=== PATIENT | female | born 1980 | race African-American/Black ===

== ENCOUNTER 2016-10-16 23:14 | Emergency (ER) | payer BC ==
[~2016-10-16] VITALS: Ht 152.4 cm; Wt 57.5 kg
[2016-10-16 23:47] VITALS: Ht 152.4 cm; Wt 57.5 kg
[2016-10-17 01:34] VITALS: BP 125/87; PULSE 70; RESP 17
[2016-10-17 02:29] LABS: ADD SCAN DIFF NO
[2016-10-17 02:31] LABS: BASOPHILS % 0.3 % (0.0-2.0); EOSINOPHILS # 0.2 10^3/ul (0.0-0.5); EOSINOPHILS % 2.8 % (0.0-7.0); HEMATOCRIT 40.1 % (37.0-47.0); HEMOGLOBIN 13.4 g/dl (12.0-16.0); LYMPHOCYTES # 2.5 10^3/ul (0.8-2.9); LYMPHOCYTES % 33.3 % (15.0-51.0); MEAN CORPUSCULAR HGB CONC 33.4 g/dl (32.0-37.0); MEAN CORPUSCULAR VOLUME 89.7 fl (82.0-101.0); MEAN PLATELET VOLUME 9.9 fl (7.4-10.4); MONOCYTE # 0.7 10^3/ul (0.3-0.9); MONOCYTES % 8.9 % (0.0-11.0); NEUTROPHIL # 4.1 10^3/ul (1.6-7.5); NEUTROPHILS % 54.4 % (39.0-77.0); PLATELET COUNT 301 10^3/UL (140-415); RED BLOOD COUNT 4.47 10^6/ul (4.20-5.40); RED CELL DISTRIBUTION WIDTH 11.9 % (11.5-14.5); WHITE BLOOD COUNT 7.5 10^3/ul (4.8-10.8)
[2016-10-17 02:46] LABS: INR 0.93; PROTIME 12.5 Sec (12.2-14.2)
[2016-10-17 02:47] LABS: PARTIAL THROMBOPLASTIN TIME 29.2 Sec (25.0-35.0)
[2016-10-17 02:48] LABS: ANION GAP 12 (8-16); BLOOD UREA NITROGEN 15 mg/dl (7-20); CALCIUM 8.7 mg/dl (8.4-10.2); CARBON DIOXIDE 26 mmol/L (21-31); CHLORIDE 108 mmol/L (97-110); CREATININE 0.79 mg/dl (0.44-1.00); GLUCOSE 94 mg/dl (70-220); POTASSIUM 3.8 mmol/L (3.5-5.1); SODIUM 142 mmol/L (135-144)
[2016-10-17 02:49] LABS: D-DIMER 511.29 ng/ml (<460)
[2016-10-17 03:01] LABS: TROPONIN-I < 0.012 ng/ml (0.00-0.12)
[2016-10-17] MEDS ORDERED: IOHEXOL 100 ML ONE (03:40)
[2016-10-17] MEDS ORDERED: SOD CHLORIDE 0.9% 100 ML ONE (03:40)
--- NOTE | 2016-10-17 03:43 | RADRPT ---
PROCEDURE: Chest. CLINICAL INDICATION: Chest pain. TECHNIQUE: Single frontal view of the chest was obtained. COMPARISON: None. FINDINGS: The cardiac silhouette is within normal limits. The aortic arch is unremarkable. There is no focal consolidation, vascular congestion or pleural effusion. There is no pneumothorax. IMPRESSION: No evidence for active cardiopulmonary disease. .Justin Lawler MD, MD Date Time Electronically viewed and signed by .Justin Lawler MD, on 10/17/2016 03:43 .T/
--- NOTE | 2016-10-17 03:48 | RADRPT ---
PROCEDURE: CT angiogram of the chest with contrast. CLINICAL INDICATION: Chest pain. TECHNIQUE: CT angiogram of the chest was obtained using a multi-detector high-resolution CT. Con tiguous axial images were obtained during the dynamic injection of 85 cc of Omnipaque 350 intravenou s contrast. Coronal and sagittal reformatted images were obtained. 3-D reformatted images were als o obtained. Images were reviewed on a PACS workstation. One or more of the following dose reduction techniques were used: - Automated exposure control. - Adjustment of the mA and/or kV according to patient size. - Use of iterative reconstruction technique. Exam CTD/vol = 5.95 mGy. Total exam DLP = 245.79 mGy-cm. COMPARISON: None. FINDINGS: The main pulmonary artery followed to the segmental divisions are well opacified. There is no filli ng defect or evidence of pulmonary embolism. The heart is normal in size. There is no pericardial thickening or effusion. The aorta is of normal course and caliber without evidence of aneurysm or d issection. There is no evidence of chest wall mass. The visualized thyroid is unremarkable. There are no enla rged axillary lymph nodes. There are no enlarged mediastinal or hilar lymph nodes by CT criteria. T here is minimal bibasilar atelectasis. There is no parenchymal nodule or consolidation. There is n o pleural effusion. The central tracheobronchial tree is within normal limits. Limited evaluation of the upper abdomen is unremarkable. IMPRESSION: No evidence of pulmonary embolism or aortic dissection. .Justin Lawler MD, MD Date Time Electronically viewed and signed by .Justin Lawler MD, MD on 10/17/2016 03:48 .T/
--- NOTE | 2016-10-17 03:52 | ERD ---
ER Documentation Chief Complaint Date/Time DATE: 10/17/16 TIME: 03:49 Chief Complaint CHEST PAIN STARTED 2 DAYS AGO, HX PALPITATIONS. WAS SEEN IN URGENT CARE HPI This is a 36-year-old female presents to the emergency room for evaluation of intermittent chest pain and palpitations were started 2 days ago. Patient states her chest pain is centralized with no radiation and is described as an achy pain. This patient does have a history of palpitations and states that she was seen at urgent care and had an EKG done and she was sent home. The patient states that when she was sent home she started to develop intermittent palpitations and came to the ER for evaluation. She denies any active chest pain or shortness of breath at this time. She denies any excess caffeine intake or alcohol intake or any drug use. ROS All systems reviewed and are negative except as per history of present illness. Allergies Allergies: Coded Allergies: No Known Allergy (Unverified , 10/17/16) PMhx/Soc History of Surgery: Yes (D&C 2015) Anesthesia Reaction: No Hx Neurological Disorder: No Hx Respiratory Disorders: No Hx Cardiac Disorders: Yes (high cholesterol) Hx Psychiatric Problems: No Hx Miscellaneous Medical Probl: Yes (hepa B) Hx Alcohol Use: Yes (occasionally) Hx Substance Use: No Hx Tobacco Use: No Smoking Status: Never smoker Physical Exam Vitals Vital Signs Date Time Temp Pulse Resp B/P Pulse Ox O2 Delivery O2 Flow Rate FiO2 10/17/16 01:34 70 17 125/87 99 Room Air 10/16/16 23:47 97.7 81 18 146/80 99 Physical Exam INITIAL VITAL SIGNS: Reviewed by me GENERAL: The patient is well developed and appropriate for usual state of health in no apparent distress HEENT: Pupils equal, round, and reactive to light. EOMI. There is no scleral icterus. NECK: C-spine is soft and supple, there is no meningismus. There is no cervical lymphadenopathy. LUNGS: Clear to auscultation bilaterally. There are no rales, wheezes or rhonchi. HEART: Regular rate and rhythm, no murmurs, clicks, rubs or gallops. ABDOMEN: Soft, non-tender, non-distended. There are bowel sounds in all four quadrants. No rebound or guarding. EXTREMITIES: There is no peripheral cyanosis or edema. No focal swelling or erythema. NEUROLOGICAL: The patient moves all four extremities with 5/5 strength. Cranial nerves II - XII are intact. Normal gait. Alert and oriented SKIN: There is no apparent rash or petechiae. HEME/LYMPHATIC: There is no evidence of excessive bruising or lymphedema. PSYCHIATRIC: The patient does not appear anxious or depressed. Result Diagram: 10/17/16 0156 10/17/16 0156 Results 24 hrs Laboratory Tests Test 10/17/16 01:56 White Blood Count 7.510^3/ul Red Blood Count 4.4710^6/ul Hemoglobin 13.4g/dl Hematocrit 40.1% Mean Corpuscular Volume 89.7fl Mean Corpuscular Hemoglobin 30.0pg Mean Corpuscular Hemoglobin Concent 33.4g/dl Red Cell Distribution Width 11.9% Platelet Count 75704^3/UL Mean Platelet Volume 9.9fl Neutrophils % 54.4% Lymphocytes % 33.3% Monocytes % 8.9% Eosinophils % 2.8% Basophils % 0.3% Nucleated Red Blood Cells % 0.0/100WBC Neutrophils # 4.110^3/ul Lymphocytes # 2.510^3/ul Monocytes # 0.710^3/ul Eosinophils # 0.210^3/ul Basophils # 0.010^3/ul Nucleated Red Blood Cells # 0.010^3/ul Prothrombin Time 12.5Sec Prothrombin Time Ratio 1.0 INR International Normalized Ratio 0.93 Activated Partial Thromboplast Time 29.2Sec D-Dimer 511.29ng/ml D-Dimer Comment Sodium Level 142mmol/L Potassium Level 3.8mmol/L Chloride Level 108mmol/L Carbon Dioxide Level 26mmol/L Anion Gap 12 Blood Urea Nitrogen 15mg/dl Creatinine 0.79mg/dl Glucose Level 94mg/dl Calcium Level 8.7mg/dl Troponin I < 0.012ng/ml Procedures/[facility] EKG: Rate/Rhythm: [Normal Sinus Rhythm] QRS, ST, T-waves: [No changes consistent w/ acute ischemia] Impression: [No evidence of ischemia or arrhythmia] Chest X-ray 1V Interpreted by me: Soft Tissue: No acute abnormalities Bones: No acute abnormalities Mediastinum/Cardiac Silhouette/Lungs: [No acute abnormalities] CT pulmonary angiogram: No PE This 36-year-old female presents to the emergency room for evaluation of intermittent chest pain palpitations. When I evaluated this patient she was in no acute distress. The patient does state that she had chest pain which localized to the center of the chest with no radiation. EKG was obtained which is nonischemic. Lab work was also obtained including a d-dimer which came back slightly elevated. A CT angios obtained to rule out pulmonary embolism and this patient has a clear CT angiography. Chest x-ray is also clear and troponin is negative. I advised this patient she needs to follow with her primary care physician and possibly have an outpatient Holter monitor. She verbalized understanding and is okay to plan of care. I have asked to return immediately to the ER if she develops any worsening symptoms. Departure Diagnosis: Primary Impression: Chest pain Additional Impression: Heart palpitations Condition: Stable LISETTE HERNANDEZ DO Oct 17, 2016 03:52
== END 2016-10-17 04:46 | disposition home or self-care (01) ==
LOC: E/R 23:14
DX: R07.9 Chest pain, unspecified (principal); R40.2252 Coma scale, best verbal response, oriented, at arrival to emergency department; R00.2 Palpitations; R40.2142 Coma scale, eyes open, spontaneous, at arrival to emergency department; R40.2362 Coma scale, best motor response, obeys commands, at arrival to emergency department
CPT/HCPCS: 36415; 71010; 71275; 80048; 84484; 85025; 85378; 85610; 85730; 93005; 99285; Q9967